=== PATIENT | male | born 1940 | race Caucasian/White ===

== ENCOUNTER → 2017-08-27 | Outpatient (CLI) | payer OTHER | END | disposition home or self-care (01) | LOC: NUCLEAR 09:00 | DX: M25.552 Pain in left hip (principal) | CPT/HCPCS: 78315; A9503 ==

== ENCOUNTER → 2017-09-29 | Outpatient (CLI) | payer OTHER | END | disposition home or self-care (01) | LOC: RAD 11:01 | DX: M54.5 Low back pain (principal); M81.0 Age-related osteoporosis without current pathological fracture ==

== ENCOUNTER 2018-06-04 07:46 | Outpatient (CLI) | payer OTHER | END 2018-06-04 07:48 | disposition home or self-care (01) | LOC: RAD 07:46 | DX: I10 Essential (primary) hypertension (principal) ==

== ENCOUNTER 2018-06-07 10:01 | Outpatient (CLI) | payer OTHER | END 2018-06-07 10:18 | disposition home or self-care (01) | LOC: SONOGRAMA 10:01 | DX: N28.89 Other specified disorders of kidney and ureter (principal); I73.89 Other specified peripheral vascular diseases; I10 Essential (primary) hypertension; M19.90 Unspecified osteoarthritis, unspecified site ==